=== PATIENT | male | born 1955 | race Two or more races ===

== ENCOUNTER 2025-04-05 09:26 | Emergency (ER) | payer MEDICARE, MEDICAID ==
[~2025-04-05] VITALS: Ht 182.9 cm; Wt 76.0 kg
[2025-04-05] MEDS ORDERED: AMIODARONE HCL (50 MG/ ML) 3 ML VIAL IV ONE (09:27)
[2025-04-05] MEDS ORDERED: EPINEPHrine HCL 1 MG/10 ML SYRG IV ONE (09:27)
[2025-04-05] MEDS ORDERED: SODIUM BICARB 8.4% 50Meq/50ml SYR INJ IV ONE (09:27)
[2025-04-05 09:35] VITALS: PULSE 149; RESP 85; O2SAT 68
[2025-04-05] MEDS: AMIODARONE BOLUS KIT 100 ML IV ONE (09:50)
--- NOTE | 2025-04-05 09:50 | ED.PDOC ---
CPR-HPI HPI Comments 69 y/o M, LIANA, presents to the ED for CC of CPR with ROSC. EMS reports, patient is coming from home where family found patient to have agonal respirations before becoming unresponsive. In the field, the patient was given x3 epinephrin with ROSC achieved upon the administration of the third epinephrin. Initial rhythm on 12-lead EKG showed AFib with RVR. Patient is intubated with a 7.0 ETT secured at 21cm at the teeth. Upon arrival to the ED, patient was transferred to ED bed 09; ACLS protocol in ongoing at this time. Patient has two sisters came in afterwards. The sister, Vanessa, reports that the patient was just released from [facility] five days ago and was diagnosed with lymphoma. Patient was advised to continue to stay in the hospital to complete the care, however he appeared to have left the hospital against medical advice. Since he has been home, patient has taken very little oral intake. Vanessa did perform CPR at scene. Other than that, she reports that patient has has not been feeling well for a long time. Chief Complaint: CPR Time Seen by MD: 09:40 Reviewed Notes: Nurses Notes, Photographic Equipment Inspector Notes, Medications, Allergies Allergies: Coded Allergies: UNOBTAINABLE (Unverified , 04/05/25) Information Source: Emergency Med Personnel Mode of Arrival: EMS Timing: Minutes Available Hx: Unknown Treatment: Intubation, Epinephrine Response: Sustained return of pulse Associated signs and symptoms: None Past Medical History PAST MEDICAL HISTORY: Unobtainable Surgical History: Unobtainable Family History Family History: Unobtainable Social History Smoker: Unobtainable Alcohol: Unobtainable Drugs: Unobtainable Lives In: Home Unable to Obtain due to: Medical Urgency All Other Systems: Reviewed and Negative Physical Exam Exam Comments Patient is intubated, pupils fixed and dilated. Patient has a IO in the left lower leg. He does not have spontaneous pulse or respiration. Patient was cyanotic in the head and neck and upper chest area. General Appearance: Thin, Other (Patient is intubated, pupils fixed and dilated. Patient has a IO in the left lower leg. He does not have spontaneous pulse or respiration. Patient was cyanotic in the head and neck and upper chest area.) HEENT: Other (Fixed dilated) Neck: Other (ET tube in place) Respiratory: Other (Bilateral breath sounds equal with ventilation by bagging, and no epigastric or going) Cardiovascular: Other (No spontaneous pulse) Breast Exam: None Gastrointestinal: Other (Scaphoid) Genitalia: Normal Pelvic: Other (Irrelevant) Rectal: Other (Not done) Extremities: Other (IO in left lower extremity) Neurologic: Other ( unresponsive) Cerebellar Function: NOT DONE Reflexes: NOT DONE Skin: Dry Lymphatic: NOT DONE Was a procedure done? Was a procedure done?: No Differential Dx CPR Differential Diagnosis: Cardiopulmonary arrest, Cardiac Tamponade, Cardiogenic shock, Dysrhythmia, Electrolyte disorder, Heart Block, Myocardial Infarction, Pulmonary Embolus, Ruptured Aortic Aneurysm X-Ray, Labs, Meds, VS Vital Signs Date Time Temp Pulse Resp B/P (MAP) Pulse Ox O2 Delivery O2 Flow Rate FiO2 04/05/25 09:26 97.7 174 24 117/64 98 97.7 Time of 1ST Reevaluation: 10:10 Reevaluation 1ST: Time of 2ND Reevaluation: 09:50 Patient Education/Counseling: Pt Unresponsive Family Education/Counseling: Diagnosis, Treatment SEPSIS Sepsis Screen Physician Orders Continuous Ekg Monitoring 08,12,16,20,00,04 (04/05/25 09:40) Electrocardigram (04/05/25 10:40) Electrocardigram (04/05/25 12:40) Amiodarone 450mg/250ml Ae (Cordarone) (04/05/25 10:00) Vital Signs Date Time Temp Pulse Resp B/P (MAP) Pulse Ox O2 Delivery O2 Flow Rate FiO2 04/05/25 09:26 97.7 174 24 117/64 98 97.7 Departure 1 Departure Time of Disposition: 10:10 Impression: Primary Impression: Cardiac arrest Disposition: 20 Condition: Other () Discharged With: Relative Critical Care Note Critical Care Time?: No Heart Score Heart Score: Heart Score Response (Comments) Value History N/A 0 EKG N/A 0 Age N/A 0 Risk Factors N/A 0 Troponin N/A 0 Total 0 Stability Stability form required: No I personally scribed for JASMIN AUGUSTE MD ([email or web address]) on 04/05/25 at 09:50. Electronically submitted by Praveena Cunha ([email or web address]). I personally scribed for JASMIN AUGUSTE MD ([email or web address]) on 04/05/25 at 10:06. Electronically submitted by Praveena Cunha ([email or web address]). JASMIN AUGUSTE MD Apr 05, 2025 09:50
--- NOTE | 2025-04-05 09:52 | ECG ---
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
[2025-04-05 10:00] VITALS: BP 30/16
--- NOTE | 2025-04-05 10:15 | RESUS ---
CODE BLUE ASSESSSMENT History of Events History of Events: Patient brought to ER via EMS after sustaining ROSC on the field. EMS reports intial call from residence was reporting patient to be unresponsive and aganol respirations for unknown amount of time. No detectable pulse by who started CPR, continued CPR upon their arrival. Per EMS total of 3 EPIs administed to patient with ROSC achieved after third epi at approximately 0913. Intubated by EMS prior to ER arrival. Arrival time to ER 09. Initial Information Date: Apr 05, 2025 Time: : Location of Arrest: ER Arrest Witnessed: Yes CPR started initial time: : CPR started by whom: Hospital Staff Pre-Hospital Care: ACLS Type of arrest: Cardiac Spontaneous Respirations: No Monitoring: Pulse Oximetry, Capnography, Telemetry Crash Cart Opened and Supplies: Yes Airway Ventilation Breathing at Onset: Assisted Oxygen Delivery Method: Ambu-Bag Artificial Ventilation: Bag/Endo tube Intubation Size: 7.0 cuffed Intubated by: EMS Intubated orally: Yes Intubated Nasaly: No Comments: Intubated prior to ER arrival Circulation Circulation : Time: 09:33 Pulse Rate (adult): 100 Blood Pressure Systolic: 129 Blood Pressure Diastolic: 85 Temperature (Fahrenheit): 97.7 Circulation Comment: ROSC Procedure - Intraosseous Site of Intraosseous: [place] cliff-medial (esta) Comment: established by EMS prior to ER arrival Medications & Response Medications and Responses : Medication Time: 09:32 ADULT Medications Given ADULT: Epinephrine 1 mg, Sodium Bacarbinate 50 meq Route of Administration: IO Nurses Notes [place] Coma Scale Eye Opening: None (1) [place] Coma Scale Verbal: None (1) [place] Coma Scale Motor: None (1) [place] Total: 3 Pupil Reaction: Non Reactive Bedside Blood Glucose: 135 Time Code Ended Time Code Ended: 09:33 Post Arrest Status: Ventilated Outcome of code: Successful Family notified: Yes Code Team Present: Dr Kait Hunt RN Yeimi spool cleanerELEN Oh ROSC Time of ROSC: 09:33 Althea Gonzalez Apr 05, 2025 10:15
--- NOTE | 2025-04-05 10:25 | RESUS ---
CODE BLUE ASSESSSMENT History of Events History of Events: Patient noted to have a drop in heart rate, upon palpation no detectable pulse. CPR started by ER staff Initial Information Date: Apr 05, 2025 Time: 09:45 Location of Arrest: ER Arrest Witnessed: Yes CPR started by whom: Hospital Staff Pre-Hospital Care: ACLS Type of arrest: Cardiac Spontaneous Respirations: No Pulse Present: No Monitoring: Pulse Oximetry, Apnea, Capnography Crash Cart Opened and Supplies: Yes Airway Ventilation Breathing at Onset: Assisted Oxygen Delivery Method: Ambu-Bag Intubation Size: 7.0 cuffed Comments: intubated prior to ER arrival Circulation Circulation #1: Time: 09:47 Circulation Comment: PEA Circulation #2: Time: 09:49 Circulation Comment: ASYSTOLE Circulation #3: Time: 09:51 Circulation Comment: TOD/ ASYSTOLE Medications & Response Medications and Responses : Medication Time: 09:47 ADULT Medications Given ADULT: Epinephrine 1 mg Route of Administration: IV Nurses Notes Rito Coma Scale Eye Opening: None (1) [place] Coma Scale Verbal: None (1) [place] Coma Scale Motor: None (1) Pupil Reaction: Non Reactive Bedside Blood Glucose: 135 Time Code Ended Time Code Ended: 09:51 Post Arrest Status: Outcome of code: Unsuccessful Family notified: Yes Code Team Present: Dr Kait Key RN Althea Garrido Apr 05, 2025 10:25
[2025-04-05 10:41] VITALS: PULSE 148; RESP 85; TEMP 97.7; O2SAT 68
== END 2025-04-05 09:51 ==
LOC: EDBD 09:26 → ER 09:26
DX: I46.9 Cardiac arrest, cause unspecified (principal); Z79.899 Other long term (current) drug therapy
CPT/HCPCS: 82947; 92950; 93005; 99285; J0169; J0282